=== PATIENT | male | born 1965 ===

== ENCOUNTER 2018-07-04 20:36 | Emergency (ER) | payer OTHER ==
--- NOTE | 2018-07-04 21:07 | ED PDOC ---
Arrival/HPI - General Time Seen by Provider: 07/04/18 20:39 Historian: Patient - History of Present Illness Narrative History of Present Illness (Text): 07/04/18 21:05 53-year-old male presents emergency room complaining of injury to the right thumb, states that he works for [employer] and was attempting to fix a door that was malfunctioning and the door slammed on his right thumb prior to arrival. Otherwise he is complaining of pain and swelling. He reports no numbness, other injury or other joint pain. Patient has no other complaints. Family/Social History Family/Social History: No Known Family HX Allergies/Home Meds Allergies/Adverse Reactions: Allergies No Known Allergies Allergy (Verified 07/04/18 21:04) Review of Systems - Review of Systems Constitutional: absent: Fatigue, Fevers Musculoskeletal: Arthralgias, Joint Swelling. absent: Back Pain, Neck Pain Skin: absent: Rash, Skin Lesions Neurological: absent: Headache, Dizziness Physical Exam Pain Distress: Mild Mental Status: Positive for: Alert and Oriented X 3 - Systems Exam Upper Extremity: Present: NORMAL PULSES, Tenderness (+tenderness and swelling to the R thumb with limited ROM secondary to pain), Neurovascularly Intact, Capillary Refill < 2s, Norm 2-Pt Discrimination. No: Temperature Abnormalties, Deformity Lower Extremity: Present: Normal Inspection. No: Edema Neurological: Present: GCS=15, CN II-XII Intact, Speech Normal Skin: Present: Warm, Dry, Normal Color. No: Rashes Psychiatric: Present: Alert, Oriented x 3, Normal Insight, Normal Concentration Medical Decision Making ED Course and Treatment: 07/04/18 21:07 Patient medicated with naprosyn po. XR R thumb : no fracture, no dislocation. On reevaluation, patient remains awake alert and oriented 3 in no acute distress. XR results discussed with the patient. Diagnosis of contusion discussed with the patient. Orthoglass thumb spica splint applied. Patient refused arm sling. Advised to rest, ice and elevate the hand. Advised to follow up with workman's comp in 1-2 days without fail. Advised to take medication as prescribed. Return to the emergency room at any time for any new or worsening symptoms. Patient states he fully agrees with and understands discharge instructions. States that he agrees with the plan and disposition. Verbalized and repeated discharge instructions and plan. I have given the patient opportunity to ask any additional questions. - PA / [employer] FINISH[employer] WORKER / Resident Statement MD/DO has reviewed & agrees with the documentation as recorded. Disposition/Present on Arrival - Present on Arrival Any Indicators Present on Arrival: No History of DVT/PE: No History of Uncontrolled Diabetes: No Urinary Catheter: No History of Decub. Ulcer: No - Disposition Have Diagnosis and Disposition been Completed?: Yes Diagnosis: Thumb contusion Disposition: HOME/ ROUTINE Disposition Time: 22:30 Patient Plan: Discharge Patient Problems: Current Active Problems Problem Status Onset Thumb contusion Acute Condition: STABLE Discharge Instructions (ExitCare): Contusion (DC) Additional Instructions: Thank you for letting us take care of you today. You were treated for thumb contusion. The emergency medical care you received today was directed at your acute symptoms. If you were prescribed any medication, please fill it and take as directed. It may take several days for your symptoms to resolve. Return to the Emergency Department if your symptoms worsen, do not improve, or if you have any other problems. Please contact your workman's doctor in 2 days for re-evaluation and follow up / or call one of the physicians/clinics you have been referred to that are listed on the Patient Visit Information form that is included in your discharge packet. Bring any paperwork you were given at discharge with you along with any medications you are taking to your follow up visit. Our treatment cannot replace ongoing medical care by a primary care provider (PCP) outside of the emergency department. Thank you for allowing the [facility] [employer] team to be part of your care today. If you had an X-Ray: A Radiologist will review the ED reading if any change in treatment is needed we will contact you. Prescriptions: Naproxen 500 mg PO BID PRN #20 tablet PRN Reason: Pain, Moderate (4-7) Referrals: PCP,NO [Primary Care Provider] - Follow up with primary Karyna Tai MD [Staff Provider] - Follow up with primary Forms: WORK NOTE
[2018-07-04 21:08] VITALS: BP 143/92; PULSE 88; RESP 18; TEMP 98.2; O2SAT 98
[2018-07-04] MEDS ORDERED: Naproxen 550 mg Tab PO STA (21:29)
--- NOTE | 2018-07-05 12:46 | RAD ---
PROCEDURE: Right Hand and right thumb radiographs. HISTORY: pain COMPARISON: None. TECHNIQUE: 3 views obtained. FINDINGS: BONES: Normal. No fracture. JOINTS: There is joint space narrowing between the radius and scaphoid. There is also increased distance between the scaphoid and lunate consistent with a ligament tear SOFT TISSUES: Normal. OTHER FINDINGS: None. IMPRESSION: No acute findings
== END 2018-07-04 23:11 | disposition home or self-care (01) ==
LOC: ED 20:36
DX: S60.011A Contusion of right thumb without damage to nail, initial encounter (principal); W23.0XXA Caught, crushed, jammed, or pinched between moving objects, initial encounter